=== PATIENT | female | born 1980 | race Hispanic/Latino ===

== ENCOUNTER 2022-01-06 09:39 | Outpatient (CLI) | payer OTHER ==
--- NOTE | 2022-01-06 13:24 | Ultrasound Report ---
ULTRASOUND PELVIS INDICATION / CLINICAL INFORMATION: N92.0 R10.30. Pelvic pain. Abnormal uterine bleeding. TECHNIQUE: Transabdominal and Transvaginal. Duplex Color Doppler used: Yes. COMPARISON: None available FINDINGS: UTERUS: - Appearance: Heterogeneous. - Size (cm): 10.0 x 6.1 x 5.3 cm. - Endometrial Complex (if present): No significant abnormality.. Thickness in cm (if measured) = 0.7 cm. - Mass or cyst: Multiple uterine fibroids. The largest is intramural within the uterine body measurin g 2.2 cm. - Additional findings: The endometrium is mildly thickened and heterogeneous within the lower uterine segment. RIGHT ADNEXA:The right ovary measures 2.5 x 2.5 x 1.9 cm. Follicular changes noted. Normal color Dop pler blood flow. LEFT ADNEXA:The left ovary measures 3.2 x 2.3 x 1.8 cm. Follicular changes noted. Normal color Doppl er blood flow. URINARY BLADDER: No significant abnormality. FREE FLUID: None. ADDITIONAL FINDINGS: None. IMPRESSION: 1. Uterine fibroids measuring up to 2.2 cm. 2. The endometrium has a mildly thickened and heterogeneous appearance near the cervix. Consider soft tissue sampling. The fundal endometrium demonstrates no significant abnormality. Scribed by: Charleen Velasco RDMS, ANNABEL, ISRA Scribed: 01/06/2022 11:41 AM I have reviewed the images, agree with this report, and edited this report as needed. Signer Name: Zachary Rivera MD Signed: 01/06/2022 1:19 PM Workstation Name: [id number]
== END 2022-01-06 09:40 | disposition home or self-care (01) ==
LOC: US 09:39
PROVIDERS: ATTEND Internal Medicine Hematology & Oncology
DX: D25.9 Leiomyoma of uterus, unspecified (principal); N92.0 Excessive and frequent menstruation with regular cycle; R10.30 Lower abdominal pain, unspecified
CPT/HCPCS: 76830; 76856